=== PATIENT | male | born 1980 | race Caucasian/White ===

== ENCOUNTER → 2018-06-14 14:15 | Outpatient (CLI) | payer MEDICAID, SELFPAY ==
--- NOTE | 2018-06-14 14:24 | EKG12_ITS ---
Test Reason : CP Blood Pressure : / mmHG Vent. Rate : 082 BPM Atrial Rate : 082 BPM P-R Int : 160 ms QRS Dur : 084 ms QT Int : 374 ms P-R-T Axes : 047 -13 018 degrees QTc Int : 436 ms Normal sinus rhythm Leftward axis Confirmed by TED CORONA, JOHN ([id number]), image editor [email or web address] [employer] ([id number]) on 06/15/2018 10:32:40 AM Referred By: [facility] Confirmed By:JOHN JEAN MD
== END ==
DX: R07.9 Chest pain, unspecified (principal)
CPT/HCPCS: 93005